=== PATIENT | male | born 1990 | race Caucasian/White ===

== ENCOUNTER 2018-02-02 07:53 | Emergency (ER) | payer OTHER, MEDICAID ==
[2018-02-02] MEDS ORDERED: ONDANSETRON 4 MG/2 ML VIAL IVP STA (08:06)
[2018-02-02] MEDS ORDERED: SODIUM CHLORIDE 0.9% 1,000 ML IV ONE (08:06)
[2018-02-02] MEDS ORDERED: MORPHINE 10 MG/ML VIAL IVP STA (08:07)
--- NOTE | 2018-02-02 08:14 | ED Physician Documentation ---
PD HPI ABD PAIN - Stated complaint Stated Complaint: CHILLS,NAUSEA,ACHES,NO APPETITE - Chief complaint Chief Complaint: General - History obtained from History obtained from: Patient - History of Present Illness Timing - duration: Weeks (1) Timing - details: Still present Pain level now: 5 Quality: Aching Location: All over / everywhere Associated symptoms: Fever, Nausea, Vomiting Similar symptoms before: Work up / diagnostics (Diagnostic Laparoscopy in 2014 was nondiagnostic.) - Additional information Additional information: The patient is a 27-year-old male who presents with aching pain in his abdomen and lower back. He reports having symptoms intermittently for months, but it has become worse during the past week. He has had decreased appetite. He reports fever to 102 last night. He reports nausea with vomiting yesterday. He denies diarrhea or dysuria. On further review of systems he reports headache , sore throat, slight cough, without shortness of breath. Past medical history is significant for diagnostic laparoscopy in August 2015. The only abnormality seen during that procedure was hyperperistalsis of the small intestine, with the unusual finding of gastric peristalsis. Review of Systems Constitutional: reports: Fever, Chills, Other (Decreased appetite.) Nose: denies: Congestion Throat: reports: Sore throat Cardiac: denies: Chest pain / pressure, Palpitations Respiratory: reports: Cough (Mild, nonproductive.). denies: Dyspnea GI: reports: Abdominal Pain, Nausea, Vomiting. denies: Diarrhea : denies: Dysuria Skin: denies: Rash Musculoskeletal: reports: Back pain (Lower back.). denies: Extremity pain Neurologic: reports: Headache. denies: Focal weakness, Numbness PD PAST MEDICAL HISTORY - Past Medical History Cardiovascular: None Respiratory: None Neuro: None Endocrine/Autoimmune: None GI: Other : Kidney stones HEENT: None Psych: None Musculoskeletal: Osteoarthritis, Chronic back pain, Other Derm: None - Past Surgical History Past Surgical History: Yes General: Other Derm: Skin grafts - Present Medications Home Medications: Ambulatory Orders Medication Instructions Recorded Confirmed Dextroamphetamine/Amphetamine 15 mg ORAL BID 08/09/15 07/05/16 [Adderall 15 mg Tablet] Promethazine [Phenergan] 25 - 50 mg PO Q6H PRN #10 tab 02/02/18 - Allergies Allergies/Adverse Reactions: Allergies Allergy/AdvReac Type Severity Reaction Status Date / Time tramadol Allergy Intermediate Respiratory Verified 02/02/18 08:05 - Social History Does the pt smoke?: No Smoking Status: Current every day smoker Does the pt drink ETOH?: Yes Does the pt have substance abuse?: No - Immunizations Immunizations are current?: No Immunizations: TDAP >10years/unknown - POLST Patient has POLST: No PD ED PE NORMAL - Vitals Vital signs reviewed: Yes (Hypertensive initially.) - General General: Alert and oriented X 3, Well developed/nourished - HEENT HEENT: Atraumatic, EOMI, Moist mucous membranes, Pharynx benign - Neck Neck: Supple, no meningeal sign, No adenopathy - Cardiac Cardiac: RRR, No murmur - Respiratory Respiratory: No respiratory distress, Clear bilaterally - Abdomen Abdomen: Normal bowel sounds, Soft, No organomegaly, Other (Tenderness to palpation in the left lower quadrant, without rebound tenderness or guarding.) - Back Back: No CVA TTP - Derm Derm: No rash - Extremities Extremities: No edema, No calf tenderness / cord - Neuro Neuro: Alert and oriented X 3, No motor deficit, No sensory deficit Results - Vitals Vitals: Vital Signs - 24 hr 02/02/18 02/02/18 02/02/18 08:04 09:26 10:23 Temperature 37.0 C Heart Rate 102 H 62 77 Respiratory 16 14 14 Rate Blood Pressure 153/99 H 125/79 148/85 H O2 Saturation 100 100 100 02/02/18 13:51 Temperature 36.8 C Heart Rate 77 Respiratory 20 Rate Blood Pressure 138/79 H O2 Saturation 98 Oxygen O2 Source Room air - Labs Labs: Laboratory Tests 02/02/18 02/02/18 02/02/18 08:14 08:14 09:22 WBC 14.1 H RBC 4.93 Hgb 15.7 Hct 45.6 MCV 92.3 MCH 31.8 H MCHC 34.4 RDW 13.0 Plt Count 222 MPV 7.7 Neut # 11.2 H Lymph # 1.3 L [place] # 1.5 H Eos # 0.0 Baso # 0.1 Absolute Nucleated RBC 0.00 Nucleated RBC % 0.0 Sodium 130 L Potassium 3.8 Chloride 95 L Carbon Dioxide 25 Anion Gap 10.0 BUN 10 Creatinine 1.0 Estimated GFR (MDRD) 91 Glucose 134 H Calcium 9.4 Total Bilirubin 1.7 H AST 16 ALT 21 Alkaline Phosphatase 45 Total Protein 8.6 H Albumin 4.7 Globulin 3.9 Albumin/Globulin Ratio 1.2 Lipase 12 L Urine Color YELLOW Urine Clarity CLEAR Urine pH 6.0 Ur Specific [place] <=1.005 Urine Protein NEGATIVE Urine Glucose (UA) NEGATIVE Urine Ketones TRACE Urine Occult Blood SMALL H Urine Nitrite NEGATIVE Urine Bilirubin NEGATIVE Urine Urobilinogen 0.2 (NORMAL) Ur Leukocyte Esterase NEGATIVE Urine RBC 0-5 Urine WBC 0-3 Ur Squamous Epith Cells NONE SEEN Urine Bacteria None Seen Ur Microscopic Review INDICATED Urine Culture Comments NOT INDICATED Influenza A (Rapid) Influenza B (Rapid) Influenza Types A,B Ag 02/02/18 10:15 WBC RBC Hgb Hct MCV MCH MCHC RDW Plt Count MPV Neut # Lymph # [place] # Eos # Baso # Absolute Nucleated RBC Nucleated RBC % Sodium Potassium Chloride Carbon Dioxide Anion Gap BUN Creatinine Estimated GFR (MDRD) Glucose Calcium Total Bilirubin AST ALT Alkaline Phosphatase Total Protein Albumin Globulin Albumin/Globulin Ratio Lipase Urine Color Urine Clarity Urine pH Ur Specific [place] Urine Protein Urine Glucose (UA) Urine Ketones Urine Occult Blood Urine Nitrite Urine Bilirubin Urine Urobilinogen Ur Leukocyte Esterase Urine RBC Urine WBC Ur Squamous Epith Cells Urine Bacteria Ur Microscopic Review Urine Culture Comments Influenza A (Rapid) Negative Influenza B (Rapid) Negative Influenza Types A,B Ag - - Rads (name of study) CT abd/pelvis w/IV contrast Radiology: Prelim report reviewed, EMP read contemporaneously, See rad report ( Normal CT abdomen and pelvis.) PD MEDICAL DECISION MAKING - ED course Complexity details: reviewed old records, reviewed results, re-evaluated patient , considered differential, d/w patient ED course: The patient's presentation is significant for left lower quadrant abdominal pain , the etiology of which is unclear at this time. This is similar to pain he has had intermittently for several months. Colitis is a likely consideration, given the patient's history of fever, and labs revealing an elevated white count 14.1. CT scan of the abdomen and pelvis with IV contrast reveals no radiographic abnormalities to account for the patient's symptoms. Urinalysis is negative. Influenza swab is also negative. I doubt diverticulitis, pyelonephritis, and there is no evidence of bowel obstruction. Treatment in the emergency department included administration of normal saline 1 L IV, Zofran 4 mg IV followed by Phenergan for 0.5 mg IV, and morphine 5 mg IV followed by Dilaudid 1 mg IV. Following the above treatment the patient's symptoms improved, and on reexamination his abdomen reveals only minimal tenderness to palpation in the left lower quadrant. He is being discharged with prescription for Phenergan. I discussed with him the possibility that colonoscopy may be considered as a diagnostic modality if his symptoms persist. I discussed with him potentially worrisome signs or symptoms that should prompt reevaluation in the emergency department. Departure - Departure Disposition: 01 Home, Self Care Clinical Impression: Abdominal pain Condition: Stable Instructions: ED Abdominal Pain Unkn Cause Follow-Up: Eden Rowland MD [Primary Care Provider] - Prescriptions: Promethazine [Phenergan] 25 - 50 mg PO Q6H PRN #10 tab PRN Reason: Nausea / Vomiting Comments: Drink plenty of fluids. You can use Phenergan as prescribed if needed for nausea. Follow up with your primary physician within 1 week. Call to schedule appointment. Discuss with her the possibility of colonoscopy for further evaluation. Return to the emergency room if you develop increasing abdominal pain, persistent vomiting, or otherwise worsening symptoms. Discharge Date/Time: 02/02/18 13:55
[2018-02-02 08:22] LABS: BASOPHILS # (AUTO) 0.1 10^3/uL (0.0-0.1); BASOPHILS % (AUTO) 0.5 %; EOSINOPHILS % (AUTO) 0.3 %; HGB - HEMOGLOBIN 15.7 g/dL (14.0-18.0); LYMPHOCYTES # (AUTO) 1.3 10^3/uL (1.5-3.5); LYMPHOCYTES % (AUTO) 9.2 %; MEAN CORPUSCULAR HEMOGLOBIN 31.8 pg (27.0-31.0); MEAN CORPUSCULAR HGB CONC 34.4 g/dL (32.0-36.0); MEAN CORPUSCULAR VOLUME 92.3 fL (80.0-94.0); MEAN PLATELET VOLUME 7.7 fL (7.4-11.4); MONOCYTES # (AUTO) 1.5 10^3/uL (0.0-1.0); MONOCYTES % (AUTO) 10.8 %; NEUTROPHILS # (AUTO) 11.2 10^3/uL (1.5-6.6); NEUTROPHILS % (AUTO) 79.2 %; PLT - PLATELET COUNT 222 10^3/uL (130-450); RED BLOOD COUNT 4.93 10^6/uL (4.70-6.10); WHITE BLOOD COUNT 14.1 x10^3/uL (4.8-10.8)
[2018-02-02 08:33] LABS: ALBUMIN 4.7 g/dL (3.2-5.5); ALBUMIN/GLOBULIN RATIO 1.2 (1.0-2.2); BILIRUBIN,TOTAL 1.7 mg/dL (0.2-1.0); CALCIUM 9.4 mg/dL (8.5-10.3); TOTAL PROTEIN 8.6 g/dL (6.7-8.2)
[2018-02-02] MEDS ORDERED: IOPAMIDOL-300 100 ML VIAL ONE (08:44)
[2018-02-02] MEDS ORDERED: IOPAMIDOL-300 100 ML VIAL IVP ONE (08:59)
--- NOTE | 2018-02-02 09:15 | CT Preliminary Report ---
Exam: CT ABDOMEN/PELVIS W/ IMPRESSION: Normal abdomen and pelvis CT. [facility] SITE ID: [id number]
--- NOTE | 2018-02-02 09:15 | CT Report ---
EXAM: CT ABDOMEN AND PELVIS EXAM DATE: 02/02/2018 08:59 AM. CLINICAL HISTORY: LLQ abd pain with fever. COMPARISONS: 10/07/2015. TECHNIQUE: Routine helical CT imaging was performed through the abdomen and pelvis. IV contrast: 100 mL Isovue-300. Enteric contrast: No. Reconstructions: Coronal and sagittal. In accordance with CT protocol optimization, one or more of the following dose reduction techniques w ere utilized for this exam: automated exposure control, adjustment of mA and/or KV based on patient s ize, or use of iterative reconstructive technique. FINDINGS: Lung Bases: Unremarkable. Liver: Normal. No masses. Gallbladder/Bile Ducts: Unremarkable. Spleen: Normal. Pancreas: Normal. Adrenal Glands: Normal. Kidneys: Normal. No masses or hydronephrosis. Peritoneal Cavity/Bowel: Normal. No free fluid, free air or adenopathy. No masses or acute inflammato ry process. The appendix is well visualized and normal. Pelvic Organs: Normal. The bladder and visualized pelvic organs are within normal limits. Vasculature: No aneurysms or other significant abnormality. Bones: No significant abnormality. Other: None. IMPRESSION: Normal abdomen and pelvis CT. [facility] Referring Provider Line: [phone] SITE ID: [id number]
[2018-02-02] MEDS ORDERED: HYDROmorphone 1 MG/ML CARPUJECT IVP STA (09:25)
[2018-02-02] MEDS ORDERED: PROMETHAZINE INJ 12.5 MG in SODIUM CHLORIDE 0.9% 50 ML IV STA (09:26)
[2018-02-02 09:34] LABS: BILIRUBIN,URINE NEGATIVE (NEGATIVE); GLUCOSE, URINE (UA) NEGATIVE (NEGATIVE); KETONES,URINE (UA) TRACE mg/dL (NEGATIVE); LEUKOCYTE ESTERASE, URINE NEGATIVE (NEGATIVE); NITRITE,URINE NEGATIVE (NEGATIVE); OCCULT BLOOD,URINE SMALL (NEGATIVE); PROTEIN,URINE NEGATIVE (NEGATIVE); UROBILINOGEN,URINE 0.2 (NORMAL) E.U./dL (NORMAL)
[2018-02-02 09:35] LABS: CLARITY,URINE CLEAR (CLEAR)
[2018-02-02 09:42] LABS: BACTERIA,URINE None Seen /HPF (None Seen); RBC,URINE 0-5 /HPF (0-5); SQUAMOUS EPITHELIAL CELL,UR NONE SEEN (<= Few)
[2018-02-02 13:52] VITALS: BP 138/79
== END 2018-02-02 13:55 | disposition home or self-care (01) ==
LOC: ED 07:53
DX: R10.32 Left lower quadrant pain (principal); F17.200 Nicotine dependence, unspecified, uncomplicated; R11.2 Nausea with vomiting, unspecified
CPT/HCPCS: 36415; 74177; 80053; 81001; 83690; 85025; 87275; 87276; 96361; 96365; 96375; 99283; 99285; J1170; J7040; Q9967; 81003; 87086

== ENCOUNTER 2018-02-03 08:50 | Outpatient (CLI) | payer OTHER ==
[2018-02-03 17:39] LABS: BASOPHILS # (AUTO) 0.1 10^3/uL (0.0-0.1); BASOPHILS % (AUTO) 0.4 %; EOSINOPHILS # (AUTO) 0.1 10^3/uL (0.0-0.7); EOSINOPHILS % (AUTO) 0.8 %; HGB - HEMOGLOBIN 14.8 g/dL (14.0-18.0); LYMPHOCYTES # (AUTO) 0.8 10^3/uL (1.5-3.5); LYMPHOCYTES % (AUTO) 6.4 %; MEAN CORPUSCULAR HEMOGLOBIN 31.3 pg (27.0-31.0); MEAN CORPUSCULAR HGB CONC 33.8 g/dL (32.0-36.0); MEAN CORPUSCULAR VOLUME 92.7 fL (80.0-94.0); MEAN PLATELET VOLUME 8.2 fL (7.4-11.4); MONOCYTES # (AUTO) 1.1 10^3/uL (0.0-1.0); MONOCYTES % (AUTO) 9.3 %; NEUTROPHILS # (AUTO) 9.7 10^3/uL (1.5-6.6); NEUTROPHILS % (AUTO) 83.1 %; PLT - PLATELET COUNT 272 10^3/uL (130-450); RED BLOOD COUNT 4.73 10^6/uL (4.70-6.10); RED CELL DISTRIBUTION WIDTH 13.3 % (12.0-15.0); WHITE BLOOD COUNT 11.7 x10^3/uL (4.8-10.8)
[2018-02-03 18:30] LABS: ALBUMIN 4.2 g/dL (3.2-5.5); ALBUMIN/GLOBULIN RATIO 1.1 (1.0-2.2); BILIRUBIN,TOTAL 0.6 mg/dL (0.2-1.0); CALCIUM 9.3 mg/dL (8.5-10.3); CREATININE 0.7 mg/dL (0.6-1.2); TOTAL PROTEIN 8.1 g/dL (6.7-8.2)
== END 2018-02-03 08:51 | disposition home or self-care (01) ==
LOC: LAB.F 08:50
PROVIDERS: ATTEND Internal Medicine
DX: D72.829 Elevated white blood cell count, unspecified (principal)
CPT/HCPCS: 36415; 80053; 81599; 85025; 85651; 86308; 86644; 86645; 86664; 86665; 87497; 87798

== ENCOUNTER 2018-10-10 17:06 | Emergency (ER) | payer OTHER, MEDICAID ==
--- NOTE | 2018-10-10 19:45 | ED Physician Documentation ---
PD HPI UPPER EXT INJURY - Stated complaint Stated Complaint: RT ARM PX - Chief complaint Chief Complaint: Ext Problem - History obtained from History obtained from: Patient - History of Present Illness Location: Right, Elbow Type of injury: Fall, Blunt / blow Improved by: Rest, Immobilization Worsened by: Moving, Palpating Associated symptoms: No: Weakness, Numbness Similar symptoms before: Has not had sx before Recently seen: Emergency Dept (had concern for accul fracture an has been using he pgu) Review of Systems Constitutional: denies: Fever, Chills, Myalgias Nose: denies: Rhinorrhea / runny nose, Congestion Throat: denies: Sore throat Cardiac: denies: Chest pain / pressure, Palpitations Respiratory: denies: Dyspnea, Cough GI: denies: Abdominal Pain, Nausea, Vomiting Neurologic: reports: Generalized weakness, Other (pain in posterior and lateral elbow. softned trad). denies: Focal weakness, Numbness PD PAST MEDICAL HISTORY - Past Medical History Past Medical History: Yes Cardiovascular: None Respiratory: None Neuro: None Endocrine/Autoimmune: None GI: Other : Kidney stones HEENT: None Psych: None Musculoskeletal: Osteoarthritis, Chronic back pain, Other Derm: None - Past Surgical History Past Surgical History: Yes General: Other Derm: Skin grafts - Present Medications Home Medications: Ambulatory Orders Medication Instructions Recorded Confirmed Dextroamphetamine/Amphetamine 15 mg ORAL BID 08/09/15 07/05/16 [Adderall 15 mg Tablet] Omeprazole 10/06/18 Oxycodone HCl/Acetaminophen 1 - 2 each PO Q6H PRN #20 tablet 10/06/18 [Percocet 5-325 mg Tablet] - Allergies Allergies/Adverse Reactions: Allergies Allergy/AdvReac Type Severity Reaction Status Date / Time tramadol Allergy Intermediate Respiratory Verified 10/06/18 11:20 - Social History Does the pt smoke?: Yes Smoking Status: Current some day smoker Does the pt drink ETOH?: Yes ETOH Use: Beer Does the pt have substance abuse?: No - Immunizations Immunizations are current?: No Immunizations: TDAP >10years/unknown - POLST Patient has POLST: No PD ED PE NORMAL - Vitals Vital signs reviewed: Yes - General General: Alert and oriented X 3, No acute distress, Well developed/nourished - HEENT HEENT: Atraumatic, PERRL, EOMI, Other (splint is in place. Likey rubbing and pain from the splint. ) - Extremities Extremities: Other (right elbow tender posterateral aspect. No noted effusion. mild bruising medially. ) - Neuro Neuro: Alert and oriented X 3, No motor deficit Eye Opening: To Voice Motor: Localizes to Pain Results - Vitals Vitals: Oxygen O2 Source Room air PD MEDICAL DECISION MAKING - ED course Complexity details: reviewed results, d/w patient Departure - Departure Disposition: 01 Home, Self Care Clinical Impression: Occult closed fracture of right elbow Qualifiers: Encounter type: subsequent encounter Elbow pain Qualifiers: Laterality: right Qualified Code(s): M25.521 - Pain in right elbow Condition: Stable Record reviewed to determine appropriate education?: Yes Follow-Up: [facility] [Provider Group] Comments: Some of your symptoms with the swelling and pain may have been from the wrap and splint. The type of injury they are concerned about can be treated with a sling only and diminished use. I would leave the splint off and no Jovan wrap on and see if that helps with the swelling in the hand and forearm. The sling should keep it immobile enough for healing of the injury around the elbow. Follow-up with orthopedics tomorrow as planned. Use the pain medicine every 4-6 hours if needed. Ice and elevate the elbow often tonight and tomorrow morning. Discharge Date/Time: 10/10/18 20:52
[2018-10-10] MEDS ORDERED: oxyCODONE 5 MG TABLET PO STA (20:16)
[2018-10-10] MEDS ORDERED: oxyCODONE/ACET 5/325 Prepack 4 PO STA (20:16)
[2018-10-10] MEDS ORDERED: IBUPROFEN 600 MG TABLET PO STA (20:17)
[2018-10-10 20:51] VITALS: BP 130/72
== END 2018-10-10 20:52 | disposition home or self-care (01) ==
LOC: ED 17:06
DX: M25.521 Pain in right elbow (principal); S42.401A Unspecified fracture of lower end of right humerus, initial encounter for closed fracture; W19.XXXA Unspecified fall, initial encounter; F17.200 Nicotine dependence, unspecified, uncomplicated
CPT/HCPCS: 99283; A9270

== ENCOUNTER 2018-11-10 08:46 | Outpatient (CLI) | payer OTHER, MEDICAID ==
--- NOTE | 2018-11-10 12:42 | MRI Report ---
Reason: RT ELBOW PAIN Procedure Date: 11/10/2018 Accession Number: [id number] / [id number] Procedure: MRI - Elbow RT W/O CPT Code: FULL RESULT: EXAM: RIGHT ELBOW MRI WITHOUT CONTRAST EXAM DATE: 11/10/2018 08:56 AM. CLINICAL HISTORY: Right ELBOW PAIN. COMPARISON: Radiographs 10/06/2018. TECHNIQUE: Multiplanar, multisequence T1-weighted and fluid-sensitive sequences of the elbow without contrast. Other: None. FINDINGS: Bones: Subtle ossific fragment at the radial margin of the capitellum seen on prior radiographs difficult to discern on MRI. Mild bone marrow edema at the far posterior and radial aspect of the capitellum at the lateral ulnar collateral ligament insertion. Subtle reactive edema at the posterior aspect medial epicondyle. Subtle bone marrow edema at the radial and ulnar aspects of the olecranon process. Articular Cartilage: Unremarkable. Ligaments: Moderate thickening and fluid sensitive hyperintense signal at the humeral insertion ulnar collateral ligament with subtle tear at the central fibers (coronal image 18 of series 801). Possible subtle partial-thickness tear at the anterior fibers ulnar insertion (coronal images 14 through 16 of series 801). Radial collateral ligament intact. Mild thickening, hyperintense signal, and distortion at the humeral insertion lateral ulnar collateral ligament. Subtle edema and distortion also present at the ulnar insertion lateral ulnar collateral ligament. Tendons: Mild common flexor tendinopathy with subtle intrasubstance tearing at the central to posterior fibers. Mild common extensor tendinopathy. The distal biceps, brachialis, and triceps tendons are unremarkable. Musculature: Mild edema in the proximal aspect common flexor and to a lesser extent common extensor musculature. No fatty atrophy. Other: The cubital tunnel and ulnar nerve are unremarkable. Small joint effusion. Minimal subcutaneous edema over the medial epicondyle. IMPRESSION: 1. Moderate sprain and partial-thickness tearing humeral insertion lateral ulnar collateral ligament. Subtle avulsion fracture fragment better visualized on prior radiographs. 2. Moderate sprain and partial-thickness tearing at the humeral and possible ulnar insertions ulnar collateral ligament. 3. Mild tendinopathy and intrasubstance tearing common flexor tendon origin. 4. Mild common extensor tendinopathy. 5. Reactive edema versus subtle contusions or impaction fractures at the olecranon process. 6. Small joint effusion. [facility] MUSCULOSKELETAL RADIOLOGY SECTION
== END 2018-11-10 08:47 | disposition home or self-care (01) ==
LOC: DI 08:46
PROVIDERS: ATTEND Orthopaedic Surgery
DX: S53.441A Ulnar collateral ligament sprain of right elbow, initial encounter (principal); M67.823 Other specified disorders of tendon, right elbow